=== PATIENT | male | born 2000 | race Caucasian/White ===

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

== ENCOUNTER 2019-01-26 11:45 | Emergency (ER) | payer BC ==
[2019-01-26 14:13] VITALS: BP 141/90
--- NOTE | 2019-01-26 14:54 | UC ---
General HPI - HPI Summary HPI Summary: 18-year-old male comes in with a chief complaint of intermittent fatigue over the past year. He's had 2 tick bites over the past year. He reports intermittent treated for Lyme with antibiotics once in the past year. Fatigue comes and goes. No fevers or chills he does have intermittent myalgias. No rashes. - History of Current Complaint Chief Complaint: UCGeneralIllness Stated Complaint: TIRED Time Seen by Provider: 01/26/19 14:15 Pain Intensity: 2 - Allergy/Home Medications Allergies/Adverse Reactions: Allergies Allergy/AdvReac Type Severity Reaction Status Date / Time No Known Allergies Allergy Verified 01/26/19 14:13 PMH/Surg Hx/FS Hx/Imm Hx Previously Healthy: Yes Psychological History: Anxiety, Depression, Bipolar Disorder - Surgical History Surgical History: None - Family History Known Family History: Negative: Cardiac Disease, Hypertension, Diabetes - Social History Alcohol Use: None Substance Use Type: Marijuana Substance Use Comment - Amount & Last Used: hallucinogens Smoking Status (MU): Never Smoked Tobacco Amount Used/How Often: has not used or smoked tabacco products in the last 30 days - Immunization History Most Recent Influenza Vaccination: unknown Most Recent Pneumonia Vaccination: none Vaccination Up to Date: Yes Review of Systems All Other Systems Reviewed And Are Negative: Yes Constitutional: Positive: Fatigue, Other - SEE HPI Skin: Positive: Negative Eyes: Positive: Negative ENT: Positive: Negative Respiratory: Positive: Negative Cardiovascular: Positive: Negative Gastrointestinal: Positive: Negative Motor: Positive: Negative Neurovascular: Positive: Negative Musculoskeletal: Positive: Myalgia Neurological: Positive: Negative Psychological: Positive: Other - Patient does have a history of bipolar disorder and also episodes of psychosis and he does state that he does have some episodes of anxiety and depression. Is Patient Immunocompromised?: No Physical Exam Triage Information Reviewed: Yes Appearance: Well-Appearing, No Pain Distress, Well-Nourished Vital Signs: Initial Vital Signs Temp 98 F 01/26/19 14:10 Pulse 78 01/26/19 14:10 Resp 18 01/26/19 14:10 BP 141/90 01/26/19 14:10 Pulse Ox 99 01/26/19 14:10 Vital Signs Reviewed: Yes Eye Exam: Normal Eyes: Positive: Conjunctiva Clear Neck: Positive: Supple, Nontender, No Lymphadenopathy Respiratory: Positive: Lungs clear, Normal breath sounds, No respiratory distress Cardiovascular: Positive: RRR Musculoskeletal: Positive: Strength Intact, ROM Intact Neurological: Positive: Alert Psychological: Positive: Age Appropriate Behavior Skin Exam: Normal Course/Dx - Course Course Of Treatment: Lyme screen with reflex to Western blot results pending. At this time were not going to treat for Lyme. Patient was primarily interested in a Lyme screen and not other testing. Reports he's not had any problems with anemia or thyroid issues and was focused on just having a Lyme test. Treat with antibiotics based on the Lyme test results. Otherwise follow-up with primary care physician. Reevaluate sooner if worse or any questions or concerns. - Diagnoses Provider Diagnosis: Fatigue Discharge ED - Sign-Out/Discharge Documenting (check all that apply): Patient Departure All imaging exams completed and their final reports reviewed: No Studies - Discharge Plan Condition: Stable Disposition: HOME Patient Education Materials: Fatigue (ED) Referrals: Mariella Mahmood MD [Primary Care Provider] - Additional Instructions: FOLLOW UP WITH YOUR DOCTOR. YOUR LYME BLOOD TESTS ARE PENDING. WE WILL CALL IF THE RESULTS ARE POSITIVE. FEEL FREE TO CALL HERE FOR FINAL RESULTS IN 1 WEEK IF YOU HAVE NOT HEARD ANY RESULTS. GET RECHECKED SOONER IF YOUR CONDITION WORSENS OR ANY QUESTIONS OR CONCERNS. - Billing Disposition and Condition Condition: STABLE Disposition: Home
== END 2019-01-26 16:01 | disposition home or self-care (01) ==
LOC: UCEAST 11:45
DX: R53.83 Other fatigue (principal); F41.9 Anxiety disorder, unspecified; F31.9 Bipolar disorder, unspecified
CPT/HCPCS: 99211; G0463

== ENCOUNTER 2021-01-22 18:45 | Inpatient (IN) ==
[2021-01-22 19:42] LABS: Urine Appearance Clear; Urine Bilirubin Negative (Negative); Urine Blood Negative (Negative); Urine Color Colorless; Urine Glucose Negative (Negative); Urine Ketones Trace (Negative); Urine Nitrite Negative (Negative); Urine Protein Negative (Negative); Urine Specific Gravity 1.001 (1.002-1.030); Urine Urobilinogen Negative (Negative)
[2021-01-22 19:58] LABS: Urine Benzodiazepine Screen None Detected (None Detect); Urine Cannabinoids Screen None Detected (None Detect); Urine Opiates Screen None Detected (None Detect)
[2021-01-22 20:09] LABS: ABS Lymphocytes 1.5 10^3/ul (1.0-4.8); ABS Monocytes 0.4 10^3/ul (0-0.8); ABS Neutrophils 2.9 10^3/ul (1.5-7.7); Hematocrit 39 % (42-52); Hemoglobin 13.5 g/dL (14.0-18.0); Lymphocyte % 30.5 %; Mean Corpuscular HGB Conc 34 g/dL (31-36); Mean Corpuscular Hemoglobin 29 pg (27-31); Mean Corpuscular Volume 86 fL (80-94); Mean Platelet Volume 8.2 fL (7.4-10.4); Platelet Count 193 10^3/uL (150-450); Red Cell Distribution Width 13 % (10-15); White Blood Count 4.8 10^3/uL (3.5-10.8)
[2021-01-22 20:23] LABS: ALT 19 U/L (7-52); AST 31 U/L (13-39); Albumin 4.7 g/dL (3.2-5.2); Alkaline Phosphatase 68 U/L (35-149); Anion Gap 10 mmol/L (2-11); Blood Urea Nitrogen 10 mg/dL (6-24); CO2 Carbon Dioxide 26 mmol/L (22-32); Calcium 9.3 mg/dL (8.6-10.3); Chloride 104 mmol/L (101-111); EGFR African American 132.3 (>60); EGFR Non-African American 109.3 (>60); Globulin 2.3 g/dL (2-4); Glucose 97 mg/dL (70-100); Potassium 3.9 mmol/L (3.5-5.0); Sodium 140 mmol/L (135-145)
[2021-01-22 20:38] LABS: Acetaminophen < 15 mcg/mL; Alcohol, S < 13 mg/dL (<13); Lithium < 0.10 mmol/L (0.6-1.2); Salicylate < 2.50 mg/dL (<30)
[2021-01-22 20:56] LABS: TSH Ultra Thyroid Stim Horm 0.85 mcIU/mL (0.34-5.60)
[2021-01-23] MEDS ORDERED: Al Hydrox/Mg Hydrox/Simet LIQ 30 ML UDC PO PRN (04:06)
[2021-01-23 05:27] LABS: Rapid COVID-19 Molecular Undetected (Undetected)
[2021-01-23] MEDS: Vitamin THERAPEUTIC TAB PO SCH (11:15)
[2021-01-24 08:13] LABS: HDL Cholesterol 52.9 mg/dL
[2021-01-24] MEDS: Vitamin THERAPEUTIC TAB PO SCH (10:36)
[2021-01-25] MEDS: Vitamin THERAPEUTIC TAB PO SCH (09:17)
[2021-01-25] MEDS: Nicotine GUM 2MG FRUIT FLAVOR PO PRN ×3 (09:17→21:36)
[2021-01-25] MEDS: risperiDONE-M 1 mg Oradis TAB PO SCH (21:26)
[2021-01-26] MEDS: Nicotine GUM 2MG FRUIT FLAVOR PO PRN ×4 (08:42→21:41)
[2021-01-26] MEDS: Vitamin THERAPEUTIC TAB PO SCH (08:42)
[2021-01-26] MEDS: risperiDONE-M 1 mg Oradis TAB PO SCH ×2 (09:52→21:33)
[2021-01-27] MEDS: risperiDONE-M 1 mg Oradis TAB PO SCH ×2 (09:00→20:41)
[2021-01-27] MEDS: Nicotine GUM 2MG FRUIT FLAVOR PO PRN ×4 (09:13→19:20)
[2021-01-27] MEDS: Vitamin THERAPEUTIC TAB PO SCH (12:21)
[2021-01-28] MEDS: risperiDONE-M 1 mg Oradis TAB PO SCH (09:08)
[2021-01-28] MEDS: Nicotine GUM 2MG FRUIT FLAVOR PO PRN ×3 (09:08→20:38)
[2021-01-28] MEDS: Vitamin THERAPEUTIC TAB PO SCH (09:10)
[2021-01-29] MEDS: Vitamin THERAPEUTIC TAB PO SCH (09:23)
[2021-01-29] MEDS: Nicotine GUM 2MG FRUIT FLAVOR PO PRN ×3 (10:14→18:09)
[2021-01-30] MEDS: Vitamin THERAPEUTIC TAB PO SCH (09:29)
[2021-01-30] MEDS: Nicotine GUM 2MG FRUIT FLAVOR PO PRN ×5 (09:29→20:39)
[2021-01-30] MEDS: risperiDONE-M 1 mg Oradis TAB PO SCH ×2 (12:56→20:38)
[2021-01-31] MEDS: risperiDONE-M 1 mg Oradis TAB PO SCH ×2 (08:34→21:02)
[2021-01-31] MEDS: Vitamin THERAPEUTIC TAB PO SCH (08:35)
[2021-01-31] MEDS: Nicotine GUM 2MG FRUIT FLAVOR PO PRN ×4 (08:41→19:26)
[2021-02-01] MEDS: Nicotine GUM 2MG FRUIT FLAVOR PO PRN ×5 (07:57→20:55)
[2021-02-01] MEDS: risperiDONE-M 1 mg Oradis TAB PO SCH ×2 (10:06→20:53)
[2021-02-01] MEDS: Vitamin THERAPEUTIC TAB PO SCH ×2 (10:06→10:08)
[2021-02-02] MEDS: Nicotine GUM 2MG FRUIT FLAVOR PO PRN ×3 (07:20→13:15)
[2021-02-02] MEDS: risperiDONE-M 1 mg Oradis TAB PO SCH ×2 (07:20→21:53)
[2021-02-02] MEDS: Vitamin THERAPEUTIC TAB PO SCH (07:21)
[2021-02-03] MEDS: Vitamin THERAPEUTIC TAB PO SCH (08:31)
[2021-02-03] MEDS: risperiDONE-M 1 mg Oradis TAB PO SCH ×2 (08:32→21:47)
[2021-02-03] MEDS: Nicotine GUM 2MG FRUIT FLAVOR PO PRN ×5 (09:06→19:39)
[2021-02-03] MEDS ORDERED: risperiDONE CONSTA 50 MG IM ONE (11:30)
[2021-02-04] MEDS: Nicotine GUM 2MG FRUIT FLAVOR PO PRN ×6 (06:03→18:58)
[2021-02-04] MEDS: Vitamin THERAPEUTIC TAB PO SCH (09:20)
[2021-02-04] MEDS: risperiDONE-M 1 mg Oradis TAB PO SCH ×2 (09:20→21:14)
[2021-02-05] MEDS: Nicotine GUM 2MG FRUIT FLAVOR PO PRN ×6 (04:40→22:30)
[2021-02-05] MEDS: risperiDONE-M 1 mg Oradis TAB PO SCH ×2 (07:35→22:16)
[2021-02-05] MEDS: Vitamin THERAPEUTIC TAB PO SCH (07:35)
[2021-02-06] MEDS: risperiDONE-M 1 mg Oradis TAB PO SCH ×3 (07:52→21:11)
[2021-02-06] MEDS: Vitamin THERAPEUTIC TAB PO SCH (07:56)
[2021-02-06] MEDS: Nicotine GUM 2MG FRUIT FLAVOR PO PRN ×3 (08:25→20:45)
[2021-02-06 13:32] LABS: HIV 4th Generation Nonreactive (Nonreactive)
[2021-02-07] MEDS: Nicotine GUM 2MG FRUIT FLAVOR PO PRN ×3 (06:48→18:11)
[2021-02-07] MEDS: Vitamin THERAPEUTIC TAB PO SCH (08:59)
[2021-02-07] MEDS ORDERED: risperiDONE-M 1 mg Oradis TAB ONE (09:01)
[2021-02-07] MEDS: risperiDONE-M 1 mg Oradis TAB PO SCH ×2 (09:07→19:51)
[2021-02-08] MEDS: risperiDONE-M 1 mg Oradis TAB PO SCH ×2 (08:48→21:41)
[2021-02-08] MEDS: Vitamin THERAPEUTIC TAB PO SCH (08:48)
[2021-02-08] MEDS: Nicotine GUM 2MG FRUIT FLAVOR PO PRN ×6 (08:59→21:42)
[2021-02-09] MEDS: Nicotine GUM 2MG FRUIT FLAVOR PO PRN ×6 (00:07→19:42)
[2021-02-09] MEDS: Vitamin THERAPEUTIC TAB PO SCH (07:32)
[2021-02-09] MEDS: risperiDONE-M 1 mg Oradis TAB PO SCH ×2 (07:54→22:33)
[2021-02-10] MEDS: Nicotine GUM 2MG FRUIT FLAVOR PO PRN ×5 (05:13→19:27)
[2021-02-10] MEDS: risperiDONE-M 1 mg Oradis TAB PO SCH ×2 (09:57→19:26)
[2021-02-10] MEDS: Vitamin THERAPEUTIC TAB PO SCH (09:58)
[2021-02-11] MEDS: Nicotine GUM 2MG FRUIT FLAVOR PO PRN ×3 (07:50→18:56)
[2021-02-11] MEDS: risperiDONE-M 1 mg Oradis TAB PO SCH ×2 (09:43→19:22)
[2021-02-11] MEDS: Vitamin THERAPEUTIC TAB PO SCH (09:44)
[2021-02-11] MEDS: Nicotine Lozenge mini 4 MG LOZNG.MINI MT PRN (22:24)
[2021-02-12] MEDS: Vitamin THERAPEUTIC TAB PO SCH (07:48)
[2021-02-12] MEDS: risperiDONE-M 1 mg Oradis TAB PO SCH (07:48)
[2021-02-12] MEDS: Nicotine Lozenge mini 4 MG LOZNG.MINI MT PRN ×5 (07:49→20:27)
[2021-02-12] MEDS ORDERED: Lithium Carbonate ER 450mg TAB PO SCH (21:00)
[2021-02-13] MEDS: Nicotine Lozenge mini 4 MG LOZNG.MINI MT PRN ×6 (07:42→22:33)
[2021-02-13] MEDS: Vitamin THERAPEUTIC TAB PO SCH (10:07)
[2021-02-13] MEDS: Lithium Carbonate ER 450mg TAB PO SCH (10:07)
[2021-02-13 13:21] LABS: Chlamydia trachomatis NAA Negative (Negative); Neisseria gonorrhoeae (GC) NAA Negative (Negative)
[2021-02-14] MEDS: Nicotine Lozenge mini 4 MG LOZNG.MINI MT PRN ×4 (08:41→20:36)
[2021-02-14] MEDS: Vitamin THERAPEUTIC TAB PO SCH (08:42)
[2021-02-14] MEDS: Lithium Carbonate ER 450mg TAB PO SCH (08:42)
[2021-02-14] MEDS: Nicotine GUM 2MG FRUIT FLAVOR PO PRN (15:09)
[2021-02-15] MEDS: Vitamin THERAPEUTIC TAB PO SCH (07:54)
[2021-02-15] MEDS: Nicotine Lozenge mini 4 MG LOZNG.MINI MT PRN ×4 (07:55→19:58)
[2021-02-15] MEDS: Lithium Carbonate ER 450mg TAB PO SCH (07:55)
[2021-02-16] MEDS: Vitamin THERAPEUTIC TAB PO SCH (08:44)
[2021-02-16] MEDS: Nicotine Lozenge mini 4 MG LOZNG.MINI MT PRN ×3 (08:44→17:01)
[2021-02-16] MEDS: Lithium Carbonate ER 450mg TAB PO SCH (08:44)
[2021-02-17] MEDS: Nicotine Lozenge mini 4 MG LOZNG.MINI MT PRN ×5 (07:31→21:00)
[2021-02-17] MEDS: Lithium Carbonate ER 450mg TAB PO SCH (09:49)
[2021-02-17] MEDS: Vitamin THERAPEUTIC TAB PO SCH (09:49)
[2021-02-18] MEDS: Nicotine Lozenge mini 4 MG LOZNG.MINI MT PRN ×4 (09:45→18:48)
[2021-02-18] MEDS: Vitamin THERAPEUTIC TAB PO SCH (09:46)
[2021-02-18] MEDS: Lithium Carbonate ER 450mg TAB PO SCH ×3 (12:48→19:20)
[2021-02-19] MEDS: Vitamin THERAPEUTIC TAB PO SCH (08:56)
[2021-02-19] MEDS: Lithium Carbonate ER 450mg TAB PO SCH ×2 (08:56→19:46)
[2021-02-19] MEDS: Nicotine Lozenge mini 4 MG LOZNG.MINI MT PRN ×4 (08:56→19:05)
[2021-02-20] MEDS: Nicotine Lozenge mini 4 MG LOZNG.MINI MT PRN ×4 (08:52→21:28)
[2021-02-20] MEDS: Vitamin THERAPEUTIC TAB PO SCH (08:52)
[2021-02-20] MEDS: Lithium Carbonate ER 450mg TAB PO SCH ×2 (08:52→21:28)
[2021-02-20] MEDS: Dextran 70/Hypromellose Tears Eye Drops 15 ml BTL (for Artificials Tears) BOTH EYES PRN ×2 (15:38→21:46)
[2021-02-21] MEDS: Nicotine Lozenge mini 4 MG LOZNG.MINI MT PRN ×5 (07:34→19:20)
[2021-02-21] MEDS: Vitamin THERAPEUTIC TAB PO SCH ×2 (07:34→08:36)
[2021-02-21] MEDS: Lithium Carbonate ER 450mg TAB PO SCH ×2 (07:34→20:46)
[2021-02-21] MEDS: Nicotine PATCH 21 MG/24 HR PATCH TRANSDERM SCH (10:36)
[2021-02-21] MEDS: Nicotine GUM 2MG FRUIT FLAVOR PO PRN (20:52)
[2021-02-22] MEDS: Nicotine PATCH 21 MG/24 HR PATCH TRANSDERM SCH (07:51)
[2021-02-22] MEDS: Lithium Carbonate ER 450mg TAB PO SCH ×2 (09:28→20:25)
[2021-02-22] MEDS: Vitamin THERAPEUTIC TAB PO SCH (09:28)
[2021-02-22] MEDS: Nicotine Lozenge mini 4 MG LOZNG.MINI MT PRN ×4 (09:30→19:26)
[2021-02-22] MEDS: Nicotine GUM 2MG FRUIT FLAVOR PO PRN (17:31)
[2021-02-23] MEDS: Nicotine PATCH 21 MG/24 HR PATCH TRANSDERM SCH (07:13)
[2021-02-23] MEDS: Nicotine GUM 2MG FRUIT FLAVOR PO PRN (09:32)
[2021-02-23] MEDS: Lithium Carbonate ER 450mg TAB PO SCH ×2 (09:32→19:56)
[2021-02-23] MEDS: Vitamin THERAPEUTIC TAB PO SCH (09:32)
[2021-02-23] MEDS: Nicotine Lozenge mini 4 MG LOZNG.MINI MT PRN ×5 (09:34→22:40)
[2021-02-24] MEDS: Nicotine Lozenge mini 4 MG LOZNG.MINI MT PRN ×7 (00:39→23:10)
[2021-02-24] MEDS: Nicotine PATCH 21 MG/24 HR PATCH TRANSDERM SCH (07:40)
[2021-02-24] MEDS: Vitamin THERAPEUTIC TAB PO SCH (07:41)
[2021-02-24] MEDS: Lithium Carbonate ER 450mg TAB PO SCH ×2 (07:41→20:20)
[2021-02-24] MEDS: Nicotine GUM 2MG FRUIT FLAVOR PO PRN (12:46)
[2021-02-25] MEDS: Nicotine Lozenge mini 4 MG LOZNG.MINI MT PRN ×5 (06:42→23:16)
[2021-02-25] MEDS: Nicotine PATCH 21 MG/24 HR PATCH TRANSDERM SCH (07:41)
[2021-02-25] MEDS: Vitamin THERAPEUTIC TAB PO SCH (07:43)
[2021-02-25] MEDS: Lithium Carbonate ER 450mg TAB PO SCH ×2 (07:43→21:55)
[2021-02-26] MEDS: Nicotine Lozenge mini 4 MG LOZNG.MINI MT PRN ×6 (02:30→23:05)
[2021-02-26] MEDS: Nicotine PATCH 21 MG/24 HR PATCH TRANSDERM SCH (07:44)
[2021-02-26 08:51] VITALS: BP 118/75
[2021-02-26] MEDS: Vitamin THERAPEUTIC TAB PO SCH (09:40)
[2021-02-26] MEDS: Lithium Carbonate ER 450mg TAB PO SCH ×2 (09:40→21:44)
[2021-02-26] MEDS: Nicotine GUM 2MG FRUIT FLAVOR PO PRN (11:09)
[2021-02-27] MEDS: Nicotine PATCH 21 MG/24 HR PATCH TRANSDERM SCH (08:44)
[2021-02-27] MEDS: Lithium Carbonate ER 450mg TAB PO SCH (08:45)
[2021-02-27] MEDS: Vitamin THERAPEUTIC TAB PO SCH (08:45)
[2021-02-27] MEDS: Nicotine Lozenge mini 4 MG LOZNG.MINI MT PRN ×2 (08:45→12:24)
== END 2021-02-27 13:30 | disposition home or self-care (01) | DRG 750 ==
LOC: ED 18:45 → BSU 01-23 03:37
PROVIDERS: ADMIT Psychiatry & Neurology Psychiatry; ATTEND Psychiatry & Neurology Psychiatry

== ENCOUNTER 2021-12-15 22:41 | Inpatient (IN) ==
[2021-12-15] MEDS ORDERED: diazePAM INJ CARPUJECT 5 MG/ML SYRINGE IM ONE (23:54)
[2021-12-15] MEDS ORDERED: Haloperidol 5 mg/ml SDV IV/IM 5 MG/ML AMP IM ONE (23:54)
[2021-12-16 00:24] LABS: Red Blood Count 4.77 10^6 /uL (4.18-5.48); White Blood Count 6.4 10^3/uL (3.5-10.8)
[2021-12-16 00:25] LABS: ABS Eosinophils 0.1 10^3/ul (0-0.6); ABS Lymphocytes 1.9 10^3/ul (1.0-4.8); ABS Monocytes 0.6 10^3/ul (0-0.8); ABS Neutrophils 3.8 10^3/ul (1.5-7.7); Eosinophil % 1.6 %; Hematocrit 42 % (42-52); Hemoglobin 13.8 g/dL (14.0-18.0); Lymphocyte % 29.2 %; Mean Corpuscular HGB Conc 33 g/dL (31-36); Mean Corpuscular Hemoglobin 29 pg (27-31); Mean Corpuscular Volume 87 fL (80-94); Mean Platelet Volume 8.5 fL (7.4-10.4); Nucleated Red Blood Cells % 0.1; Platelet Count 193 10^3/uL (150-450); Red Cell Distribution Width 13 % (10-15)
[2021-12-16 01:09] LABS: ALT 15 U/L (7-52); AST 19 U/L (13-39); Acetaminophen < 15 mcg/mL; Albumin 4.6 g/dL (3.2-5.2); Albumin/Globulin Ratio 2.3 (1-3); Alcohol, S 94 mg/dL (<13); Alkaline Phosphatase 68 U/L (35-149); Anion Gap 5 mmol/L (2-11); Blood Urea Nitrogen 12 mg/dL (6-24); CO2 Carbon Dioxide 25 mmol/L (22-32); Calcium 9.4 mg/dL (8.6-10.3); Chloride 109 mmol/L (101-111); Glucose 102 mg/dL (70-100); Potassium 3.8 mmol/L (3.5-5.0); Salicylate < 2.50 mg/dL (<30); Sodium 139 mmol/L (135-145); Total Protein 6.6 g/dL (6.4-8.9); eGFR CKD-EPI 116.1 (>60)
[2021-12-16 01:24] LABS: TSH Ultra Thyroid Stim Horm 2.47 mcIU/mL (0.34-5.60)
[2021-12-16 05:51] LABS: Urine Benzodiazepine Screen None Detected (None Detect); Urine Cannabinoids Screen Presumptive Positive (None Detect); Urine Opiates Screen None Detected (None Detect)
[2021-12-16] MEDS ORDERED: Al Hydrox/Mg Hydrox/Simet LIQ 30 ML UDC PO PRN (10:05)
[2021-12-16] MEDS: Lithium Carbonate ER 450mg TAB PO SCH (21:46)
[2021-12-17] MEDS: Lithium Carbonate ER 450mg TAB PO SCH ×2 (08:02→19:52)
[2021-12-17] MEDS: Nicotine GUM 4MG FRUIT FLAVOR PO PRN ×4 (09:40→19:48)
[2021-12-17] MEDS: Nicotine PATCH 14 MG/24 HR PATCH TRANSDERM SCH (09:56)
[2021-12-18] MEDS: Lithium Carbonate ER 450mg TAB PO SCH (08:17)
[2021-12-18] MEDS: Nicotine PATCH 14 MG/24 HR PATCH TRANSDERM SCH (08:19)
[2021-12-18 08:28] LABS: HDL Cholesterol 46.8 mg/dL
[2021-12-18] MEDS: Nicotine GUM 4MG FRUIT FLAVOR PO PRN ×3 (08:49→15:10)
[2021-12-18] MEDS: Lithium Carb ER 300 mg TAB(NF) PO SCH (22:16)
[2021-12-19] MEDS: Nicotine GUM 4MG FRUIT FLAVOR PO PRN ×4 (07:52→19:01)
[2021-12-19] MEDS: Lithium Carb ER 300 mg TAB(NF) PO SCH ×2 (07:52→21:09)
[2021-12-19] MEDS: Nicotine PATCH 14 MG/24 HR PATCH TRANSDERM SCH (08:15)
[2021-12-20] MEDS: Nicotine GUM 4MG FRUIT FLAVOR PO PRN ×6 (06:50→21:16)
[2021-12-20] MEDS: Nicotine PATCH 14 MG/24 HR PATCH TRANSDERM SCH (07:13)
[2021-12-20] MEDS: Lithium Carb ER 300 mg TAB(NF) PO SCH ×2 (09:02→21:11)
[2021-12-21] MEDS: Lithium Carb ER 300 mg TAB(NF) PO SCH ×2 (08:51→20:53)
[2021-12-21] MEDS: Nicotine PATCH 14 MG/24 HR PATCH TRANSDERM SCH (08:52)
[2021-12-21] MEDS: Nicotine GUM 4MG FRUIT FLAVOR PO PRN ×5 (08:53→19:18)
[2021-12-22] MEDS: Nicotine GUM 4MG FRUIT FLAVOR PO PRN ×3 (06:22→14:02)
[2021-12-22 07:55] VITALS: BP 140/87
[2021-12-22] MEDS: Lithium Carb ER 300 mg TAB(NF) PO SCH (09:45)
[2021-12-22] MEDS: Nicotine PATCH 14 MG/24 HR PATCH TRANSDERM SCH (09:46)
== END 2021-12-22 14:20 | disposition home health service (06) | DRG 750 ==
LOC: ED 22:41 → EDHOLD 12-16 10:05 → BSU 12-16 11:28
PROVIDERS: ADMIT Psychiatry & Neurology Psychiatry; ATTEND Student in an Organized Health Care Education/Training Program

== ENCOUNTER 2022-06-18 18:24 | Inpatient (IN) ==
[2022-06-18 19:14] LABS: ABS Eosinophils 0.1 10^3/ul (0-0.6); ABS Lymphocytes 1.9 10^3/ul (1.0-4.8); ABS Monocytes 0.6 10^3/ul (0-0.8); ABS Neutrophils 2.8 10^3/ul (1.5-7.7); Eosinophil % 1.1 %; Hematocrit 46 % (42-52); Hemoglobin 15.3 g/dL (14.0-18.0); Lymphocyte % 35.7 %; Mean Corpuscular HGB Conc 33 g/dL (31-36); Mean Corpuscular Hemoglobin 28 pg (27-31); Mean Corpuscular Volume 85 fL (80-94); Mean Platelet Volume 8.7 fL (7.4-10.4); Platelet Count 201 10^3/uL (150-450); Red Cell Distribution Width 15 % (10-15); White Blood Count 5.4 10^3/uL (3.5-10.8)
[2022-06-18 19:32] LABS: Urine Benzodiazepine Screen None Detected (None Detect); Urine Cannabinoids Screen Presumptive Positive (None Detect); Urine Opiates Screen None Detected (None Detect)
[2022-06-18 19:50] LABS: ALT 17 U/L (7-52); AST 18 U/L (13-39); Albumin 5.3 g/dL (3.2-5.2); Albumin/Globulin Ratio 2.4 (1-3); Alcohol, S < 13 mg/dL (<13); Alkaline Phosphatase 68 U/L (35-149); Anion Gap 9 mmol/L (2-11); Blood Urea Nitrogen 14 mg/dL (6-24); CO2 Carbon Dioxide 27 mmol/L (22-32); Calcium 9.8 mg/dL (8.6-10.3); Chloride 104 mmol/L (101-111); Creatinine, Serum 0.93 mg/dL (0.67-1.17); Globulin 2.2 g/dL (2-4); Glucose 87 mg/dL (70-100); Lithium < 0.10 mmol/L (0.6-1.2); Potassium 3.8 mmol/L (3.5-5.0); Sodium 140 mmol/L (135-145); Total Protein 7.5 g/dL (6.4-8.9); eGFR CKD-EPI 118.3 (>60)
[2022-06-18 20:00] LABS: Urine Appearance Clear; Urine Bacteria Absent (Absent); Urine Bilirubin Negative (Negative); Urine Blood Negative (Negative); Urine Color Yellow; Urine Glucose Negative (Negative); Urine Ketones 1+ (Negative); Urine Nitrite Negative (Negative); Urine Protein 1+(30 mg/dL) (Negative); Urine Red Blood Cell Trace(0-2/hpf) (Absent); Urine Specific Gravity 1.026 (1.002-1.030); Urine Urobilinogen Negative (Negative); Urine White Blood Cell Trace(0-5/hpf) (Absent)
[2022-06-18] MEDS ORDERED: Nicotine PATCH 21 MG/24 HR PATCH TRANSDERM ONE (20:17)
[2022-06-18] MEDS ORDERED: Al Hydrox/Mg Hydrox/Simet LIQ 30 ML UDC PO PRN (22:10)
[2022-06-19 07:44] LABS: HDL Cholesterol 43.2 mg/dL
[2022-06-19] MEDS: Nicotine PATCH 21 MG/24 HR PATCH TRANSDERM SCH (09:07)
[2022-06-19] MEDS: Vitamin THERAPEUTIC TAB PO SCH (09:09)
[2022-06-19] MEDS: OLANZapine 10 mg TAB*ODT PO PRN (15:39)
[2022-06-20] MEDS: Nicotine PATCH 21 MG/24 HR PATCH TRANSDERM SCH (09:04)
[2022-06-20] MEDS: Vitamin THERAPEUTIC TAB PO SCH (09:05)
[2022-06-20] MEDS: OLANZapine 10 mg TAB*ODT PO PRN (17:20)
[2022-06-21] MEDS: Vitamin THERAPEUTIC TAB PO SCH (07:29)
[2022-06-21] MEDS: Nicotine PATCH 21 MG/24 HR PATCH TRANSDERM SCH (10:46)
[2022-06-21] MEDS: OLANZapine 10 mg TAB*ODT PO PRN (16:26)
[2022-06-21] MEDS: Nicotine GUM 2MG FRUIT FLAVOR PO PRN ×2 (18:55→23:06)
[2022-06-22] MEDS: Nicotine GUM 2MG FRUIT FLAVOR PO PRN ×3 (07:49→21:46)
[2022-06-22] MEDS: Vitamin THERAPEUTIC TAB PO SCH (08:40)
[2022-06-22] MEDS: Nicotine PATCH 21 MG/24 HR PATCH TRANSDERM SCH (08:52)
[2022-06-23] MEDS: OLANZapine 10 mg TAB*ODT PO PRN (08:06)
[2022-06-23] MEDS: Vitamin THERAPEUTIC TAB PO SCH (08:07)
[2022-06-23] MEDS: Nicotine GUM 2MG FRUIT FLAVOR PO PRN ×4 (08:07→19:31)
[2022-06-23] MEDS: Nicotine PATCH 21 MG/24 HR PATCH TRANSDERM SCH (10:26)
[2022-06-23] MEDS ORDERED: OLANZapine 10 mg TAB*ODT PO SCH (21:00)
[2022-06-24] MEDS: Vitamin THERAPEUTIC TAB PO SCH (09:03)
[2022-06-24] MEDS: OLANZapine 10 mg TAB*ODT PO PRN ×2 (09:05→20:48)
[2022-06-24] MEDS: Nicotine PATCH 21 MG/24 HR PATCH TRANSDERM SCH (09:07)
[2022-06-24] MEDS: Nicotine GUM 2MG FRUIT FLAVOR PO PRN ×3 (11:23→20:48)
[2022-06-24] MEDS: CMC:Asenapine 5 MG TAB.SL (NF) SL SCH (20:41)
[2022-06-25] MEDS: CMC:Asenapine 5 MG TAB.SL (NF) SL SCH ×2 (08:06→22:36)
[2022-06-25] MEDS: Nicotine PATCH 21 MG/24 HR PATCH TRANSDERM SCH (08:07)
[2022-06-25] MEDS: OLANZapine 10 mg TAB*ODT PO PRN ×2 (08:09→16:09)
[2022-06-25] MEDS: Vitamin THERAPEUTIC TAB PO SCH (08:18)
[2022-06-25] MEDS: Nicotine GUM 2MG FRUIT FLAVOR PO PRN ×3 (09:53→23:26)
[2022-06-26] MEDS: OLANZapine 10 mg TAB*ODT PO PRN ×2 (04:07→19:00)
[2022-06-26] MEDS: Nicotine GUM 2MG FRUIT FLAVOR PO PRN ×4 (04:10→19:00)
[2022-06-26] MEDS: CMC:Asenapine 5 MG TAB.SL (NF) SL SCH ×2 (07:30→20:04)
[2022-06-26] MEDS: Nicotine PATCH 21 MG/24 HR PATCH TRANSDERM SCH (07:30)
[2022-06-26] MEDS: Vitamin THERAPEUTIC TAB PO SCH (07:30)
[2022-06-27] MEDS: Vitamin THERAPEUTIC TAB PO SCH (07:45)
[2022-06-27] MEDS: Nicotine PATCH 21 MG/24 HR PATCH TRANSDERM SCH (07:45)
[2022-06-27] MEDS: Nicotine GUM 2MG FRUIT FLAVOR PO PRN ×5 (07:47→21:00)
[2022-06-27] MEDS: CMC:Asenapine 5 MG TAB.SL (NF) SL SCH ×2 (07:47→20:59)
[2022-06-27 08:23] LABS: Creatinine, Serum 0.96 mg/dL (0.67-1.17); Lithium 0.59 mmol/L (0.6-1.2); eGFR CKD-EPI 113.9 (>60)
[2022-06-27 08:37] LABS: TSH Ultra Thyroid Stim Horm 2.74 mcIU/mL (0.34-5.60)
[2022-06-27 08:39] LABS: Free T3 3.4 pg/mL (2.5-3.9)
[2022-06-27 08:40] LABS: Free T4 0.76 ng/dL (0.61-1.12)
[2022-06-27] MEDS: OLANZapine 10 mg TAB*ODT PO PRN (11:35)
[2022-06-27] MEDS: Nicotine Lozenge mini 2 MG LOZNG.MINI MT PRN (19:06)
[2022-06-28] MEDS: Nicotine Lozenge mini 2 MG LOZNG.MINI MT PRN ×6 (05:29→21:15)
[2022-06-28] MEDS: Vitamin THERAPEUTIC TAB PO SCH (07:43)
[2022-06-28] MEDS: CMC:Asenapine 5 MG TAB.SL (NF) SL SCH ×2 (07:46→21:05)
[2022-06-28] MEDS: Nicotine PATCH 21 MG/24 HR PATCH TRANSDERM SCH ×2 (12:06→13:55)
[2022-06-28] MEDS: OLANZapine 10 mg TAB*ODT PO PRN (15:14)
[2022-06-28] MEDS: Nicotine GUM 2MG FRUIT FLAVOR PO PRN (17:47)
[2022-06-29] MEDS: Nicotine Lozenge mini 2 MG LOZNG.MINI MT PRN ×3 (06:39→16:12)
[2022-06-29] MEDS: Nicotine PATCH 21 MG/24 HR PATCH TRANSDERM SCH (08:51)
[2022-06-29] MEDS: Vitamin THERAPEUTIC TAB PO SCH (08:55)
[2022-06-29] MEDS: CMC:Asenapine 5 MG TAB.SL (NF) SL SCH ×2 (08:55→20:32)
[2022-06-29] MEDS: Nicotine GUM 2MG FRUIT FLAVOR PO PRN ×2 (10:53→17:53)
[2022-06-29] MEDS: OLANZapine 10 mg TAB*ODT PO PRN (10:53)
[2022-06-30] MEDS: OLANZapine 10 mg TAB*ODT PO PRN ×2 (03:39→15:34)
[2022-06-30] MEDS: Nicotine Lozenge mini 2 MG LOZNG.MINI MT PRN ×3 (03:39→18:53)
[2022-06-30] MEDS: Nicotine PATCH 21 MG/24 HR PATCH TRANSDERM SCH (07:15)
[2022-06-30] MEDS: Vitamin THERAPEUTIC TAB PO SCH (09:20)
[2022-06-30] MEDS: CMC:Asenapine 5 MG TAB.SL (NF) SL SCH ×2 (09:20→21:02)
[2022-06-30] MEDS: Nicotine GUM 2MG FRUIT FLAVOR PO PRN (15:34)
[2022-07-01] MEDS: Nicotine Lozenge mini 2 MG LOZNG.MINI MT PRN (05:51)
[2022-07-01] MEDS: Nicotine GUM 2MG FRUIT FLAVOR PO PRN (06:54)
[2022-07-01] MEDS: Vitamin THERAPEUTIC TAB PO SCH (09:09)
[2022-07-01] MEDS: Nicotine PATCH 21 MG/24 HR PATCH TRANSDERM SCH (09:09)
[2022-07-01] MEDS: CMC:Asenapine 5 MG TAB.SL (NF) SL SCH (09:10)
[2022-07-01 09:16] VITALS: BP 135/89
== END 2022-07-01 12:01 | disposition home or self-care (01) | DRG 750 ==
LOC: ED 18:24 → EDHOLD 20:35 → BSU 23:05
PROVIDERS: ADMIT Psychiatry & Neurology Psychiatry; ATTEND Psychiatry & Neurology Psychiatry

== ENCOUNTER 2023-07-22 18:06 | Inpatient (IN) ==
[2023-07-22 19:32] LABS: ABS Basophils 0.1 10^3/uL (0.0-0.1); ABS Eosinophils 0.1 10^3/uL (0.0-0.5); ABS Lymphocytes 1.8 10^3/uL (1.0-4.8); ABS Monocytes 0.4 10^3/uL (0.0-1.1); ABS Neutrophils 4.6 10^3/uL (1.5-7.6); ABS Nucleated RBC 0.01 10^3/ul; Eosinophil % 0.9 %; Hematocrit 41.3 % (38-53); Hemoglobin 14.2 g/dL (13.2-16.3); Lymphocyte % 26.2 %; Mean Corpuscular Hemoglobin 29.6 pg (27-33); Mean Corpuscular Hgb Conc 34.5 g/dL (31-36); Mean Corpuscular Volume 85.9 fL (80-97); Mean Platelet Volume 8.5 fL (7.5-11.2); Nucleated Red Blood Cells % 0.1 %/100WBC (0.0-0.8); Platelet Count 206 10^3/uL (150-450); Red Blood Count 4.81 10^6/uL (4.06-5.63)
[2023-07-22 20:12] LABS: ALT 14 U/L (7-52); AST 16 U/L (13-39); Acetaminophen < 15 mcg/mL; Albumin 4.9 g/dL (3.2-5.2); Albumin/Globulin Ratio 2.6 (1-3); Alcohol, S < 13 mg/dL (<13); Alkaline Phosphatase 56 U/L (35-149); Anion Gap 8 mmol/L (2-16); Blood Urea Nitrogen 16 mg/dL (6-24); CO2 Carbon Dioxide 25 mmol/L (22-32); Calcium 9.5 mg/dL (8.6-10.3); Chloride 106 mmol/L (101-111); Creatinine, Serum 0.97 mg/dL (0.67-1.17); Globulin 1.9 g/dL (2-4); Glucose 153 mg/dL (70-100); Potassium 3.8 mmol/L (3.5-5.0); Salicylate < 2.50 mg/dL (<30); Sodium 139 mmol/L (135-145); Total Protein 6.8 g/dL (6.4-8.9); eGFR CKD-EPI 111.8 (>60)
[2023-07-22 20:26] LABS: TSH Ultra Thyroid Stim Horm 2.06 mcIU/mL (0.34-5.60)
[2023-07-23 01:16] LABS: Urine Appearance Clear; Urine Bilirubin Negative (Negative); Urine Blood Negative (Negative); Urine Color Light-Yellow; Urine Glucose Negative (Negative); Urine Ketones Negative (Negative); Urine Nitrite Negative (Negative); Urine Protein Negative (Negative); Urine Specific Gravity 1.011 (1.002-1.030); Urine Urobilinogen Negative (Negative); Urine pH 5.5 (5.0-8.0)
[2023-07-23 01:44] LABS: Urine Benzodiazepine Screen None Detected (None Detect); Urine Cannabinoids Screen Presumptive Positive (None Detect); Urine Opiates Screen None Detected (None Detect)
[2023-07-23] MEDS ORDERED: Al Hydrox/Mg Hydrox/Simet LIQ 30 ML UDC PO PRN (05:18)
[2023-07-23] MEDS: ASENAPINE 5 MG SL SCH (09:33)
[2023-07-23] MEDS: LITHIUM CARBONATE 300 MG PO SCH (09:33)
[2023-07-23] MEDS: Vitamin THERAPEUTIC TAB PO SCH (09:36)
[2023-07-23] MEDS: Nicotine GUM 2MG FRUIT FLAVOR PO PRN (13:48)
[2023-07-25 08:29] LABS: HDL Cholesterol 50.8 mg/dL
[2023-07-25] MEDS: Nicotine Lozenge mini 2 MG LOZNG.MINI MT PRN (18:03)
[2023-07-31] MEDS: Paliperidone SUSTENNA 234 MG/1.5 ML IM ONE (15:54)
[2023-08-03] MEDS: Paliperidone SUSTENNA 156 MG/1 ML IM ONE ×2 (09:13→13:46)
[2023-08-03] MEDS: Lithium Carb ER 300 mg TAB(NF) PO SCH (20:52)
[2023-08-03] MEDS: Lithium Carbonate ER 450mg TAB PO SCH (20:52)
[2023-08-04 11:29] VITALS: BP 157/83
== END 2023-08-04 14:30 | disposition home or self-care (01) | DRG 750 ==
LOC: ED 18:06 → EDHOLD 07-23 04:43 → BSU 07-23 04:53
PROVIDERS: ADMIT Psychiatry & Neurology Psychiatry; ATTEND Student in an Organized Health Care Education/Training Program